=== PATIENT | male | born 1965 | race Caucasian/White ===

== ENCOUNTER 2018-11-08 11:55 | Day surgery (SDC) | payer OTHER ==
[~2018-11-08] VITALS: Ht 180.3 cm; Wt 95.6 kg
[2018-11-08 12:40] VITALS: Ht 180.3 cm; Wt 95.6 kg
[2018-11-08 12:43] VITALS: BP 139/76; PULSE 75; RESP 15
[2018-11-08] MEDS ORDERED: METO-336 PO (12:52)
[2018-11-08] MEDS ORDERED: IRBE150T21 PO (12:52)
[2018-11-08] MEDS ORDERED: CEFAZOLIN 1 GM/50 ML (PMX) 50 ML IVPB ONE (13:50)
--- NOTE | 2018-11-08 14:19 | PREAC ---
Date/Time of Note Date/Time of Note DATE: 11/08/18 TIME: 14:18 Anesthesia Eval and Record Evaluation Time Pre-Procedure Interview DATE: 11/08/18 TIME: 14:18 Age 53 Sex male NPO: 8 hrs Preoperative diagnosis Abdominal Pain Planned procedure Colonoscopy Past Medical History Past Medical History: Includes Cardio: HTN, Arrythmia Surgery & Anesthesia Issues No known issue Meds Anticoagulation: No Beta Keira within 24 hr: Yes Reported Medications Metoprolol Succinate* (Toprol XL*) 100 Mg Tab.sr.24h, 100 MG PO DAILY, #30 TAB 11/08/18 Irbesartan* (Irbesartan*) 150 Mg Tablet, 150 MG PO DAILY, TAB 11/08/18 Meds reviewed: Yes Allergies Coded Allergies: No Known Drug Allergies (Verified Allergy, Unknown, 11/08/18) Allergies Reviewed: Yes Labs/Studies Labs Reviewed: Reviewed by anesthesiologist test: N/A Pre-procedure Exam Last vitals Vital Signs Date Temp Pulse Resp B/P (MAP) Pulse Ox O2 O2 Flow FiO2 Time Delivery Rate 11/08/18 98.3 75 15 139/76 98 Room Air 12:43 (97) Airway: Adequate mouth opening Mallampati: Mallampati III Teeth: Normal Lung: Normal Heart: Normal ASA Physical Status ASA physical status: 3 Emergency: None Planned Anesthetic General/MAC: MAC Pre-operative Attestations Prior to commencing anesthesia and surgery, the patient was re-evaluated, there was verification of: *The patient's identity *The results of appropriate recent lab work and preoperative vital signs *The above evaluation not changing prior to induction *Anesthetic plan, risk benefits, alternative and complications discussed with patient/family; questions answered; patient/family understands, accepts and wishes to proceed. COMPA CARDOZA MD Nov 08, 2018 14:19
[2018-11-08] MEDS ORDERED: PROPOFOL 40 ML ONE (14:20)
--- NOTE | 2018-11-08 14:39 | PAC ---
Date/Time of Note Date/Time of Note DATE: 11/08/18 TIME: 14:38 Post-Anesthesia Notes Post-Anesthesia Note Last documented vital signs Vital Signs Date Temp Pulse Resp B/P (MAP) Pulse Ox O2 O2 Flow FiO2 Time Delivery Rate 11/08/18 98.3 75 15 139/76 98 Room Air 12:43 (97) Activity: WNL Respiratory function: WNL Cardiovascular function: WNL Mental status: Baseline Pain reasonably controlled: Yes Hydration appropriate: Yes Nausea/Vomiting absent: Yes COMPA CARDOZA MD Nov 08, 2018 14:39
[2018-11-08 15:04] VITALS: BP 119/74; PULSE 73; RESP 24
== END 2018-11-08 15:21 | disposition home or self-care (01) ==
LOC: GIL 11:55
PROVIDERS: ATTEND Internal Medicine
DX: K57.30 Diverticulosis of large intestine without perforation or abscess without bleeding (principal); I10 Essential (primary) hypertension
CPT/HCPCS: 43239; 45378; J0690